=== PATIENT | male | born 1975 | race Caucasian/White ===

== ENCOUNTER → 2018-09-17 | Outpatient (CLI) | payer BC ==
--- NOTE | 2018-09-17 14:27 | US ---
EXAMINATION TYPE: US venous doppler duplex LE LT DATE OF EXAM: 09/17/2018 2:18 PM COMPARISON: NONE CLINICAL HISTORY: M79.605 pain in left lower limb. Focal redness on medial left mid calf. No blood th inners. SIDE PERFORMED: Left TECHNIQUE: The lower extremity deep venous system is examined utilizing real time linear array sonog gustabo with graded compression, doppler sonography and color-flow sonography. VESSELS IMAGED: External Iliac Vein (EIV) Common Femoral Vein Deep Femoral Vein Greater Saphenous Vein * Femoral Vein Popliteal Vein Small Saphenous Vein * Proximal Calf Veins (* superficial vessels) Left Leg: Appears negative for DVT. Area of redness scanned: thrombus visualized in superficial vei n Grayscale, color doppler, spectral doppler imaging performed of the deep veins of the left lower extr emity. There is normal flow, compressibility, vascular waveforms. IMPRESSION: Acute superficial venous thrombosis at the area of redness noted towards the end of stud y. No acute DVT in opposite left leg.
== END | disposition home or self-care (01) ==
LOC: RADUSWWP 13:10
PROVIDERS: ATTEND Family Medicine
DX: I82.812 Embolism and thrombosis of superficial veins of left lower extremity (principal)

== ENCOUNTER → 2019-02-18 | Outpatient (CLI) | payer BC ==
--- NOTE | 2019-02-18 09:11 | US ---
EXAMINATION TYPE: US duplex aorta DATE OF EXAM: 02/18/2019 COMPARISON: NONE CLINICAL HISTORY: 44-year-old male Z82.49 family hx of aneurysm. TECHNIQUE: Multiple sonographic images of the abdominal aorta are obtained. FINDINGS: EXAM MEASUREMENTS: Abdominal Aorta: Proximal: 2.4 x 2.4 cm Mid: 1.9 x 2.2 cm Distal: 2.2 x 2.4 cm Bifurcation: rt, 1.3 x 1.3 cm lt, 1.2 x 1.2 cm [employer] notes: normal caliber aorta IMPRESSION: No sonographic evidence for AAA.
== END | disposition home or self-care (01) ==
LOC: RADUSWWP 08:09
PROVIDERS: ATTEND Family Medicine
DX: Z13.6 Encounter for screening for cardiovascular disorders (principal); Z82.49 Family history of ischemic heart disease and other diseases of the circulatory system
CPT/HCPCS: 93979

== ENCOUNTER → 2023-10-20 | Outpatient (CLI) | payer BC ==
[2023-10-20 15:08] LABS: Basophils # (A) 0.04 X 10*3/uL (0.00-0.10); Basophils % (A) 0.6 %; Eosinophils # (A) 0.27 X 10*3/uL (0.04-0.35); Eosinophils % (A) 4.1 %; HCT 44.6 % (39.6-50.0); HGB 14.2 g/dL (13.0-17.0); Lymphocytes # (A) 2.01 X 10*3/uL (0.90-5.00); Lymphocytes % (A) 30.2 %; MCH 30.9 pg (27.0-32.0); MCHC 31.8 g/dL (32.0-37.0); Mean Platelet Volume 9.7 FL (9.5-12.2); Monocytes # (A) 0.46 X 10*3/uL (0.20-1.00); Monocytes % (A) 6.9 %; NRBC Per 100 WBC 0 X 10*3/uL (0.00-0.01); Neutrophils # (A) 3.86 X 10*3/uL (1.80-7.70); Neutrophils % (A) 57.9 %; Platelet Count 252 X 10*3/uL (140-440); RDW 14.2 % (11.5-14.5); WBC 6.66 X 10*3/uL (4.50-10.00)
[2023-10-20 16:04] LABS: ALT 18 U/L (10-49); AST 20 U/L (14-35); Albumin 4.3 g/dL (3.8-4.9); Albumin/Globulin Ratio 1.59 Ratio (1.60-3.17); Alkaline Phosphatase 77 U/L (41-126); Blood Urea Nitrogen 14.2 mg/dL (9.0-27.0); Calcium 9.6 mg/dL (8.7-10.3); Carbon Dioxide 23.4 mmol/L (21.6-31.8); Chloride 103 mmol/L (96-109); Chol/HDL Ratio 3.79 Ratio; Globulin 2.7 g/dL (1.6-3.3); Glucose 100 mg/dL (70-110); LDL Cholesterol,Calculated 99.6 mg/dL (0.0-131.0); Potassium 4.4 mmol/L (3.5-5.5); Prostate Specific Antigen 0.59 ng/mL (0.000-2.500); Sodium 139 mmol/L (135-145); Total Bilirubin 0.5 mg/dL (0.3-1.2); VLDL Calculation 18.94 mg/dL (5.00-40.00)
== END | disposition home or self-care (01) ==
LOC: LABWHC1 11:11
PROVIDERS: ATTEND Family Medicine
DX: Z00.00 Encounter for general adult medical examination without abnormal findings (principal); Z12.5 Encounter for screening for malignant neoplasm of prostate; E55.9 Vitamin D deficiency, unspecified
CPT/HCPCS: 36415; 80053; 80061; 82306; 83036; 84153; 84443; 85025

== ENCOUNTER 2024-01-06 10:43 | Day surgery (SDC) | payer BC ==
[2024-01-06 11:25] VITALS: TEMP 97
[2024-01-06] MEDS: IV FLUID CONTINUATION 1,000 ML IV ONE (11:27)
[2024-01-06] MEDS: LACTATED RINGERS 1,000 ML IV SCH (11:34)
[2024-01-06] MEDS ORDERED: PROPOFOL 10 MG/ML 20 ML VIAL IV ONE (12:06)
--- NOTE | 2024-01-06 12:19 | P.PCN ---
Date of Procedure: 01/06/24 Procedure(s) Performed: BRIEF HISTORY: Patient is a 48-year-old pleasant white male scheduled for an elective colonoscopy as a part of screening for colon cancer. PROCEDURE PERFORMED: Colonoscopy. PREOPERATIVE DIAGNOSIS: Screening for colon cancer. IV sedation per Anesthesia. PROCEDURE: After informed consent was obtained, the patient, was brought into the endoscopy unit. IV sedation was administered by Anesthesia under continuous monitoring. Digital rectal examination was normal. Initially the Olympus CF-160 flexible video colonoscope was then inserted in the rectum, gradually advanced into the cecum without any difficulty. Careful examination was performed as the scope was gradually being withdrawn. Ileocecal valve and the appendiceal orifice were visualized and appeared normal. Prep was excellent. Mucosa of the cecum, ascending colon, transverse colon, descending colon, sigmoid colon, and rectum appeared normal. Retroflexion was performed in the rectum and no lesions were seen. The patient tolerated the procedure well. IMPRESSION: Normal-appearing colon from rectum to cecum with no evidence of colorectal neoplasia. RECOMMENDATIONS: Findings of this examination were discussed with the patient as well as his family. He was advised to have repeat screening colonoscopy in 10 years.
[2024-01-06 12:46] VITALS: RESP 16
[2024-01-06 12:47] VITALS: BP 111/67; PULSE 66
== END 2024-01-06 13:01 | disposition home or self-care (01) ==
LOC: ORWHC2ENDO 10:43
PROVIDERS: ATTEND Internal Medicine Gastroenterology
DX: Z12.11 Encounter for screening for malignant neoplasm of colon (principal); G47.33 Obstructive sleep apnea (adult) (pediatric); Z79.899 Other long term (current) drug therapy
CPT/HCPCS: 45378; J2704

== ENCOUNTER → 2024-10-31 | Outpatient (CLI) | payer BC ==
[2024-10-31 15:33] LABS: Basophils # (A) 0.05 X 10*3/uL (0.00-0.10); Basophils % (A) 0.8 %; Eosinophils # (A) 0.19 X 10*3/uL (0.04-0.35); Eosinophils % (A) 3.1 %; HGB 13.4 g/dL (13.0-17.0); Lymphocytes # (A) 1.78 X 10*3/uL (0.90-5.00); Lymphocytes % (A) 29.3 %; MCH 30.3 pg (27.0-32.0); MCHC 31.9 g/dL (32.0-37.0); Mean Platelet Volume 9.6 FL (9.5-12.2); Monocytes # (A) 0.54 X 10*3/uL (0.20-1.00); Monocytes % (A) 8.9 %; NRBC Per 100 WBC 0 X 10*3/uL (0.00-0.01); Neutrophils % (A) 57.6 %; Platelet Count 270 X 10*3/uL (140-440); RBC 4.42 X 10*6/uL (4.40-5.60); RDW 14.4 % (11.5-14.5); WBC 6.08 X 10*3/uL (4.50-10.00)
[2024-10-31 15:41] LABS: Chol/HDL Ratio 4.08 Ratio; LDL Cholesterol,Calculated 117.4 mg/dL (0.0-131.0); VLDL Calculation 10.86 mg/dL (5.00-40.00)
[2024-10-31 15:42] LABS: ALT 19 U/L (10-49); AST 21 U/L (14-35); Albumin 3.9 g/dL (3.8-4.9); Alkaline Phosphatase 76 U/L (41-126); BUN/Creat Ratio 17.91 Ratio (12.00-20.00); Blood Urea Nitrogen 19.7 mg/dL (9.0-27.0); Calcium 8.9 mg/dL (8.7-10.3); Chloride 105 mmol/L (96-109); Globulin 2.6 g/dL (1.6-3.3); Glucose 100 mg/dL (70-110); PSA Annual Screen 0.435 ng/mL (0.000-4.000); Potassium 4.4 mmol/L (3.5-5.5); Sodium 139 mmol/L (135-145); Total Bilirubin 0.3 mg/dL (0.3-1.2); Total Protein 6.5 g/dL (6.2-8.2)
== END | disposition home or self-care (01) ==
LOC: LABWHC1 08:46
PROVIDERS: ATTEND Family Medicine
DX: Z00.00 Encounter for general adult medical examination without abnormal findings (principal); Z12.5 Encounter for screening for malignant neoplasm of prostate
CPT/HCPCS: 80061; 80053; 84443; 85025; 83036; 36415; G0103